=== PATIENT | female | born 1995 | race Caucasian/White ===

== ENCOUNTER 2019-06-27 10:42 | Inpatient (IN) ==
[2019-06-27] MEDS ORDERED: D5 1/2 NS 1000 ML 1,000 ML IV ONE (11:05)
[2019-06-27 11:21] VITALS: BMI 32.5
[2019-06-27 11:36] LABS: AMNISURE ROM TEST THERE IS A RUPTURE (NO RUPTURE)
[2019-06-27] MEDS ORDERED: NUBAIN INJ 10 ONE (11:55)
[2019-06-27] MEDS ORDERED: PHENERGAN INJ 25 MG IM PRN ×2 (12:15→17:01)
[2019-06-27] MEDS ORDERED: REGLAN INJ 10 MG VIAL IVP PRN (12:15)
[2019-06-27] MEDS ORDERED: D5LR 1L W PITOCIN 10 UNITS/L 10 UNITS/1,000 ML BAG IV PRN (12:15)
[2019-06-27] MEDS ORDERED: NUBAIN INJ 200 MG VIAL MULTIDOSE IVP PRN (12:15)
[2019-06-27] MEDS ORDERED: PITOCIN IVP ONE (12:15)
[2019-06-27] MEDS ORDERED: MORPHINE SULFATE INJ 2 MG INJ IVP PRN (12:15)
[2019-06-27] MEDS ORDERED: DILAUDID INJ IVP PRN (12:15)
--- NOTE | 2019-06-27 12:18 | US ---
HISTORYABSENT HEART TONES, WATER BROKE, HX OF TRISOMY 21 Relevant Clinical InformationSTUDYObstetric ultrasound, greater than 14 weeks, limitedCOMPARISONNo [facility] fetus is present currently in cephalic lie. Despite prolonged observation, there is no indication of cardiac activity. Biparietal diameter 7.86 centimeters compatible in estimated gestational age of 31 weeks 4 days.The abdominal circumference is 32.8 centimeters compatible with 36 weeks 5 days. femoral length is 0.7 centimeters compatible with 36 weeks 2 days. Average gestational age is 36 weeks 3 days.There is almost no perceptible amniotic fluid compatible with water breakage.IMPRESSIONEvidence of demise at 36 weeks 3 days.Electronically signed by: JACQUES CUELLO (Jun 27, 2019 12:16:39)
[2019-06-27] MEDS ORDERED: BACITRACIN VIAL ONE (12:37)
[2019-06-27] MEDS ORDERED: MARCAINE 0.5% ONE (12:37)
[2019-06-27] MEDS ORDERED: XYLOCAINE 2 % (PLAIN) ONE (12:37)
[2019-06-27 12:45] LABS: BASOPHILS # (AUTO) 0.1 X10^3/uL (0.0-0.1); BASOPHILS % (AUTO) 0.6 % (0.2-1.0); EOSINOPHILS % (AUTO) 0.5 % (0.9-2.9); HEMATOCRIT 36.1 % (36.0-47.0); HEMOGLOBIN 12.5 g/dL (12.0-16.0); LYMPHOCYTES % (AUTO) 12.8 % (21.0-51.0); MEAN CORPUSCULAR HEMOGLOBIN 30.5 pg (27.0-34.0); MEAN CORPUSCULAR HGB CONC 34.7 g/dL (33.0-35.0); MEAN PLATELET VOLUME 8.4 fL (7.4-11.0); MONOCYTES # (AUTO) 0.5 x10^3/uL (0.3-0.8); MONOCYTES % (AUTO) 6.2 % (0.0-13.0); NEUTROPHILS # (AUTO) 6.4 x10^3/uL (2.2-4.8); NEUTROPHILS % (AUTO) 79.9 % (42.0-75.0); PLATELET COUNT 165 X10^3/uL (150.0-450.0); RED CELL DISTRIBUTION WIDTH 13.5 % (11.6-16.5)
[2019-06-27 12:54] LABS: BLOOD UREA NITROGEN 8 mg/dL (7-18); CALCIUM 8.9 mg/dL (8.5-10.1); CARBON DIOXIDE 21.4 mmol/L (21-32); CHLORIDE 104 mmol/L (98-107); COR NA(FOR HYPERGLY) 138 mmol/L (136-145); CREATININE 0.78 mg/dL (0.55-1.02); SODIUM 138 mmol/L (136-145); eGFR NON BLACK RACES > 60 (>60)
[2019-06-27] MEDS ORDERED: D5LR 1L W PITOCIN 10 UNITS/L 10 UNITS/1,000 ML BAG IV ONE (12:57)
[2019-06-27] MEDS ORDERED: FENTANYL INJ 100 mcg ONE (12:57)
[2019-06-27] MEDS ORDERED: NAROPIN EPIDURAL 0.2% + FENTANYL 90MCG 60 ML EPI ONE (12:57)
[2019-06-27] MEDS ORDERED: LR 1000 ML IV 1,000 ML IV ONE (12:57)
[2019-06-27] MEDS ORDERED: D5 1/2 NS 1000 ML 1,000 ML IV SCH (13:00)
[2019-06-27] MEDS ORDERED: PITOCIN ONE (15:59)
[2019-06-27] MEDS ORDERED: D5 1/2 NS 1L W PITOCIN 20 UNITS/L 20 UNITS/1,000 ML BAG IV ONE (15:59)
--- NOTE | 2019-06-27 17:01 | DR.OB ---
OB Quick Note - Assessment/Plan Assessment/Plan: Delivery Note SENIOR JAVA SOFTWARE DEVELOPER 06/27/19 at 4:31pm Patient complete and pushing. Head delivered over intact perineum. No nuchal cord. Body delivered over intact perineum. Cord clamped x 2 and cut. handed to attendants. Cord segment sent. Placenta delivered spontaneously / intact / 3 vessel cord. No CVX tears. A second degree midline tear noted and repaired with 0-vicryl in usual fashion. A demised female infant, VTX/OA, wt=6'3", to attendant. Infant appeared to be appropriate for age with moderate meconium noted. A midline cleft lip/palate noted and skin sloughing. WCS=[id number].
[2019-06-27] MEDS ORDERED: ZOFRAN INJ 4 MG VIAL ONE (17:07)
[2019-06-27] MEDS ORDERED: DERMOPLAST SPRAY TOP PRN (18:36)
[2019-06-27] MEDS ORDERED: XANAX PO PRN (18:36)
[2019-06-27] MEDS ORDERED: MILK OF MAGNESIA PO PRN (18:36)
[2019-06-27] MEDS ORDERED: AMBIEN PO PRN (18:36)
[2019-06-27] MEDS ORDERED: ADACEL or BOOSTRIX TDaP VACCINE IM ONE (18:36)
[2019-06-27] MEDS: MOTRIN TAB 800 MG PO PRN (18:49)
[2019-06-27] MEDS: D5 1/2 NS 1000 ML 1,000 ML with PITOCIN 20 UNITS IV SCH ×2 (23:45)
[2019-06-28] MEDS: D5 1/2 NS 1000 ML 1,000 ML with PITOCIN 20 UNITS IV SCH ×2 (02:00)
[2019-06-28] MEDS: MOTRIN TAB 800 MG PO PRN (03:24)
[2019-06-28 05:36] LABS: HEMATOCRIT 28.1 % (36.0-47.0)
[2019-06-28 05:38] LABS: HEMOGLOBIN 9.8 g/dL (12.0-16.0)
[2019-06-28] MEDS ORDERED: LEXAPRO ONE (07:42)
[2019-06-28 08:10] VITALS: BP 121/76
[2019-06-28] MEDS ORDERED: PRENATAL PLUS PO SCH (09:00)
[2019-06-28] MEDS ORDERED: LEXAPRO PO SCH (09:00)
[2019-06-28] MEDS ORDERED: PROTONIX TAB 40 MG PO SCH (09:00)
== END 2019-06-28 10:15 | disposition home or self-care (01) | DRG 807 ==
LOC: ER 10:42 → LD 12:15 → MED/SURG 17:19
PROVIDERS: ADMIT Specialist; ATTEND Specialist
CPT/HCPCS: 36415; 59409; 76815; 80048; 84112; 85014; 85018; 85025; 86592; 86850; 86900; 86901; 96365; 99284; A4216; A4222; S0197; J2300; J2590; J2765; J3010; J7120; S5010

== ENCOUNTER 2020-08-08 23:13 | Inpatient (IN) ==
[2020-08-08] MEDS ORDERED: D5 1/2 NS 1000 ML 1,000 ML IV ONE (23:39)
[2020-08-08] MEDS ORDERED: BETADINE SOLN ONE (23:39)
[2020-08-08] MEDS ORDERED: PITOCIN ONE (23:39)
[2020-08-08] MEDS ORDERED: D5LR 1L W PITOCIN 10 UNITS/L 10 UNITS/1,000 ML BAG IV ONE (23:40)
[2020-08-08] MEDS ORDERED: D5 1/2 NS 1L W PITOCIN 20 UNITS/L 20 UNITS/1,000 ML BAG IV ONE (23:40)
[2020-08-08 23:43] VITALS: BMI 32.5
--- NOTE | 2020-08-09 00:08 | DR.OB ---
OB Quick Note - Assessment/Plan Assessment/Plan: L&D 08/09/20 at 12:05am S-No complaint except CTX. O-Afebrile,VSS RSE=610 with good LTV, +accel, no decel. CTX=q 1 1/2 to 3 min., strong by palpation CVX=4cm/75%/0/VTX AROM with clear fluid. IUPC and FSE placed. A-IUP at 39 0/7 weeks in active labor P-Begin pitocin augmentation as needed. Anticipate
[2020-08-09] MEDS ORDERED: NAROPIN EPIDURAL 0.2% 100 ML ONE (00:10)
[2020-08-09] MEDS ORDERED: LR 1000 ML IV 1,000 ML IV ONE (00:10)
[2020-08-09] MEDS ORDERED: DILAUDID INJ ONE (00:10)
[2020-08-09] MEDS ORDERED: FENTANYL INJ 100 mcg ONE ×3 (00:11→00:16)
[2020-08-09] MEDS ORDERED: REGLAN INJ 10 MG VIAL ONE (00:39)
[2020-08-09] MEDS: D5 1/2 NS 1000 ML 1,000 ML with PITOCIN 20 UNITS IV SCH ×6 (03:38→20:31)
--- NOTE | 2020-08-09 03:48 | DR.OB ---
OB Quick Note - Assessment/Plan Assessment/Plan: Delivery Note FISH NET MAKER 08/09/20 at 3:45am Patient complete and pushing. Head delivered over intact perineum. Nose and mouth bulb suctioned. No nuchal cord. Body delivered over intact perineum. Cord clamped x 2 and cut. handed to attendant. Cord sent for gases. Placenta delivered spontaneously / intact / 3 vessel cord. No CVX tears. A small midline second degree tear noted and repaired with 0-vicryl in usual fashion. Viable female infant, VTX/OA, wt=7'3" and 9/9, stable to NBN. Mother stable to RR. RXQ=[id number].
[2020-08-09] MEDS ORDERED: MILK OF MAGNESIA PO PRN (04:50)
[2020-08-09] MEDS ORDERED: ADACEL or BOOSTRIX TDaP VACCINE IM ONE ×2 (04:50→08:18)
[2020-08-09] MEDS ORDERED: DERMOPLAST PAIN RELIEF SPRAY TOP PRN (04:50)
[2020-08-09] MEDS ORDERED: AMBIEN PO PRN (04:50)
[2020-08-09 05:28] LABS: HEMATOCRIT 31.3 % (36.0-47.0); HEMOGLOBIN 10.6 g/dL (12.0-16.0)
[2020-08-09] MEDS ORDERED: BENADRYL CAP/TAB 25 MG PO PRN (06:20)
[2020-08-09] MEDS ORDERED: MOTRIN TAB 800 MG PO ONE ×2 (08:17→18:08)
[2020-08-09] MEDS: PRENATAL PLUS PO SCH (08:32)
[2020-08-09] MEDS: PROTONIX TAB 40 MG PO SCH (08:32)
[2020-08-09] MEDS: MOTRIN TAB 800 MG PO PRN ×2 (09:17→18:06)
[2020-08-09] MEDS: PHENERGAN INJ 25 MG IM PRN ×2 (14:22→21:47)
[2020-08-09] MEDS ORDERED: XANAX PO PRN (22:03)
[2020-08-10] MEDS: D5 1/2 NS 1000 ML 1,000 ML with PITOCIN 20 UNITS IV SCH ×2 (06:05)
[2020-08-10] MEDS ORDERED: MOTRIN TAB 800 MG PO ONE (08:32)
[2020-08-10 08:44] VITALS: BP 93/56
[2020-08-10] MEDS: PRENATAL PLUS PO SCH (09:35)
[2020-08-10] MEDS: PROTONIX TAB 40 MG PO SCH (09:36)
[2020-08-10] MEDS: MOTRIN TAB 800 MG PO PRN (09:36)
== END 2020-08-10 11:00 | disposition home or self-care (01) | DRG 807 ==
LOC: ER 23:13 → LD 23:36 → OBS 08-09 04:52
PROVIDERS: ADMIT Specialist; ATTEND Specialist

== ENCOUNTER 2023-02-03 18:59 | Inpatient (IN) ==
[2023-02-03 19:19] VITALS: BMI 32.0
[2023-02-03] MEDS ORDERED: LR 1,000 ML IV 1,000 ML IV ONE (19:58)
[2023-02-03] MEDS ORDERED: LR 1,000 ML IV 1,000 ML IV STA (19:59)
[2023-02-03] MEDS ORDERED: D5 LR + PITOCIN 10 UNITS/L 10 UNITS/1,000 ML BAG IV PRN (20:00)
[2023-02-03] MEDS ORDERED: D5 1/2 NS 1,000 ML 1,000 ML IV SCH (20:00)
[2023-02-03] MEDS ORDERED: PITOCIN IVP ONE (20:00)
[2023-02-03 20:07] LABS: BILIRUBIN,URINE NEGATIVE (NEGATIVE); BLOOD/HEMOGLOBIN,URINE NEGATIVE (NEGATIVE); GLUCOSE, URINE NEGATIVE (NEGATIVE); KETONES,URINE 2+ (NEGATIVE); LEUKOCYTE ESTERASE ,URINE 1+ (NEGATIVE); NITRITES,URINE NEGATIVE (NEGATIVE); PROTEIN,URINE NEGATIVE (NEGATIVE); UROBILINOGEN,URINE NORMAL (NORMAL)
[2023-02-03 20:09] LABS: APPEARANCE,URINE CLEAR (CLEAR); COLOR,URINE YELLOW (YELLOW)
[2023-02-03 20:12] LABS: BACTERIA,URINE 2+ /HPF (NEGATIVE); RBC,URINE 0-2 /HPF (0-3); SQUAMOUS EPITHELIAL CELL,UR NUMEROUS /HPF (NEGATIVE)
[2023-02-03] MEDS ORDERED: FENTANYL VIAL INJ 100 mcg ONE (20:19)
[2023-02-03] MEDS ORDERED: NAROPIN EPIDURAL 0.2% 100 ML ONE (20:19)
[2023-02-03] MEDS ORDERED: PITOCIN ONE (21:06)
[2023-02-03] MEDS ORDERED: D5 1/2 NS 1,000 mL + PITOCIN 20 UNITS/L IV 20 UNITS/1,000 ML BAG IV ONE (21:07)
[2023-02-03] MEDS ORDERED: BETADINE SOLN ONE (21:07)
[2023-02-03] MEDS ORDERED: D5 1/2 NS 1,000 ML 1,000 ML IV ONE (21:07)
[2023-02-03] MEDS ORDERED: D5 LR + PITOCIN 10 UNITS/L 10 UNITS/1,000 ML BAG IV ONE (21:07)
--- NOTE | 2023-02-03 21:08 | DR.OB ---
OB Quick Note - Assessment/Plan Assessment/Plan: L&D 02/03/23 at 9:00pm S-No complaint. s/p epidural. O-Afebrile,VSS IZB=181 with good LTV, +accel, no decel. CTX=q 1 1/2 to 2 min., mod. by palpation CVX=8cm/75%/0/VTX AROM with clear fluid. IUPC and FSE placed. A-IUP at 38 4/7 weeks in active labor P-Begin pitocin augmentation as needed. F/U labs Anticipate
--- NOTE | 2023-02-03 22:42 | DR.OB ---
OB Quick Note - Assessment/Plan Assessment/Plan: Delivery Note LOGGING ASSISTANT 02/03/23 at 22:26 Patient complete and pushing. Head delivered over intact perineum. Nuchal cord x 1 reduced. Nose and mouth bulb suctioned. Body delivered over intact perineum. Cord clamped x 2 and cut. Infant handed to attendant. Late meconium noted. Cord sent for gases. Placenta delivered spontaneously / intact / 3 vessel cord. No CVX / vaginal / perineal tears noted. Viable male infant delivered by , VTX/OA, wt=8'0" and 8/9, stable to NBN. Mother stable to RR. BPK=[id number].
[2023-02-03] MEDS: D5 1/2 NS 1,000 ML 1,000 ML with PITOCIN 20 UNITS IV SCH ×2 (23:25)
[2023-02-03] MEDS ORDERED: MILK OF MAGNESIA PO PRN (23:41)
[2023-02-03] MEDS ORDERED: AMBIEN PO PRN (23:41)
[2023-02-03] MEDS ORDERED: ADACEL or BOOSTRIX TDaP VACCINE IM ONE (23:41)
[2023-02-03] MEDS ORDERED: DERMOPLAST PAIN RELIEF SPRAY TOP PRN (23:41)
[2023-02-04] MEDS ORDERED: BENADRYL CAP/TAB 25 MG PO PRN (00:40)
[2023-02-04] MEDS: MOTRIN TAB 800 MG PO PRN ×2 (03:21→13:25)
[2023-02-04 05:33] LABS: HEMATOCRIT 29.1 % (36.0-47.0); HEMOGLOBIN 9.8 g/dL (12.0-16.0)
[2023-02-04] MEDS: D5 1/2 NS 1,000 ML 1,000 ML with PITOCIN 20 UNITS IV SCH ×4 (06:06→19:12)
[2023-02-04] MEDS: PROTONIX TAB 40 MG PO SCH (09:30)
[2023-02-04] MEDS: PRENATAL PLUS PO SCH (09:30)
[2023-02-05] MEDS: D5 1/2 NS 1,000 ML 1,000 ML with PITOCIN 20 UNITS IV SCH ×4 (00:13→06:16)
[2023-02-05] MEDS: MOTRIN TAB 800 MG PO PRN (03:55)
[2023-02-05 04:55] VITALS: RESP 18
[2023-02-05] MEDS: PRENATAL PLUS PO SCH (08:19)
[2023-02-05] MEDS: PROTONIX TAB 40 MG PO SCH (08:19)
[2023-02-05 09:08] VITALS: BP 100/63; PULSE 98; TEMP 97.4; O2SAT 99
== END 2023-02-05 11:40 | disposition home or self-care (01) | DRG 807 ==
LOC: ER 18:59 → LD 20:01 → MED/SURG 23:56
PROVIDERS: ADMIT Specialist; ATTEND Specialist
DX: Z01.812 Encounter for preprocedural laboratory examination; O99.013 Anemia complicating pregnancy, third trimester; K21.9 Gastro-esophageal reflux disease without esophagitis; R79.89 Other specified abnormal findings of blood chemistry; D50.8 Other iron deficiency anemias; O99.613 Diseases of the digestive system complicating pregnancy, third trimester; Z37.0 Single live birth; Z3A.38 38 weeks gestation of pregnancy